=== PATIENT | female | born 1995 | race African-American/Black ===

== ENCOUNTER 2016-10-02 23:59 | Emergency (ER) | payer OTHER ==
[2016-10-03] MEDS ORDERED: hydrOXYzine HCL TAB* 50 MG PO ONE (01:49)
[2016-10-03 02:08] VITALS: BP 134/83
--- NOTE | 2016-10-03 02:34 | ED ---
Skin Complaint - HPI Summary HPI Summary: Pt here w/ multiple red pruritic spots that she noticed while driving back from a weekend in [place]. Admits she stayed in a hostile - did not note uncleanliness however reports there may have been insects in the area. Denies trouble breathing, swallowing, facial swelling or tingling. Has allergies and asthma and takes an anti-histamine as well as singulair daily. No current issues but h/o skin reactions w/ environmental contacts. No new food,, medication, toiletries, etc. No trauma to skin of affected areas and no known h/ o infections (ie., MRSA, staph, etc). Pt is here because she's concerned about what this could be and also because she can't stop itching the areas. Tried benadryl 25mg earlier today w some relief. - History of Current Complaint Chief Complaint: EDRashSkinAbscess Time Seen by Provider: 10/03/16 01:28 Stated Complaint: RASH Hx Obtained From: Patient, Family/Funeral Home General Manager - mom Pain Intensity: 2 Pain Scale Used: 0-10 Numeric - Allergy/Home Medications Allergies/Adverse Reactions: Allergies Allergy/AdvReac Type Severity Reaction Status Date / Time No Known Allergies Allergy Verified 10/03/16 00:10 PMH/Surg Hx/FS Hx/Imm Hx - Immunization History Date of Tetanus Vaccine: 2009 Date of Influenza Vaccine: None Infectious Disease History: No Infectious Disease History: Reports: Traveled Outside the [place] in Last 30 Days - Social History Alcohol Use: Occasionally Substance Use Type: Reports: Marijuana Smoking Status (MU): Light Every Day Tobacco Smoker Physical Exam Triage Information Reviewed: Yes Vital Signs On Initial Exam: Initial Vitals Temp Pulse Resp BP Pulse Ox 98.3 F 72 15 134/78 100 10/03/16 00:04 10/03/16 00:04 10/03/16 00:04 10/03/16 00:04 10/03/16 00:04 Vital Signs Reviewed: Yes Appearance: Positive: Well-Appearing, No Pain Distress, Well-Nourished Skin: Positive: Warm, Dry - dime sized areas of erythematous urticaria - appears to be insect bites; 2 side by side along Lt ventral forearm, 2 side by side over Rt lateral hip, 1 over Rt anterior tibial region and 1 over Rt calf region - no pustules, no vesicles, no bleeding nor bruising. Head/Face: Positive: Normal Head/Face Inspection Eyes: Positive: Normal, EOMI. Negative: Conjunctiva Inflammed, Discharge ENT: Positive: Hearing grossly normal, Pharynx normal Neck: Positive: Supple Respiratory/Lung Sounds: Positive: Clear to Auscultation, Breath Sounds Present. Negative: Stridor, Wheezes Cardiovascular: Positive: Normal, RRR. Negative: Leg Edema Left, Leg Edema Right Abdomen Description: Positive: Nontender Bowel Sounds: Positive: Present Musculoskeletal: Positive: Normal, Strength/ROM Intact Neurological: Positive: Normal, Sensory/Motor Intact, Alert, Oriented to Person Place, Time, CN Intact II-III Psychiatric: Positive: Normal Diagnostics - Vital Signs Vital Signs Temp Pulse Resp BP Pulse Ox 10/03/16 02:07 98.3 F 65 16 134/83 10/03/16 00:04 98.3 F 72 15 134/78 100 - Laboratory Lab Statement: Any lab studies that have been ordered have been reviewed, and results considered in the medical decision making process. Course/Dx - Diagnoses Provider Diagnoses: Bug bites Discharge - Discharge Plan Condition: Stable Disposition: HOME Prescriptions: Hydrocortisone 1% CREAM* [Hytone Cream 1%*] 1 applic TOPICAL TID PRN #1 tube PRN Reason: Itching hydrOXYzine HCL TAB* [Atarax 25 MG TAB*] 25 mg PO QID PRN #20 tab PRN Reason: Itching Patient Education Materials: Insect Bite or Sting (ED) Forms: *Work Release Referrals: Betsy Blanco MD [Primary Care Provider] - Additional Instructions: You appear to be having a local reaction to bug bites. It is important that you avoid itching in an effort to a) reduce symptoms and b) prevent risk of opening wounds and triggering an infection. You may use topical ice, hydrocortisone, oatmeal bath, sensitive skin moisturizer and take hydroxyzine by mouth for itching. Follow-up with PCP if persists beyond the week. *If you develop fever, chills, trouble breathing, limbs swelling, worsening of sores, return to ED
== END 2016-10-03 02:07 | disposition home or self-care (01) ==
LOC: ED 23:59
DX: T14.8 Other injury of unspecified body region (principal); L29.9 Pruritus, unspecified; F17.210 Nicotine dependence, cigarettes, uncomplicated; W57.XXXA Bitten or stung by nonvenomous insect and other nonvenomous arthropods, initial encounter; Y93.9 Activity, unspecified; Y92.9 Unspecified place or not applicable
CPT/HCPCS: 99282; A9270-GY

== ENCOUNTER 2018-04-29 17:31 | Emergency (ER) | payer OTHER ==
[2018-04-29] MEDS ORDERED: Ibuprofen TAB* 600 MG PO ONE (22:04)
[2018-04-29] MEDS ORDERED: Amoxicillin PO (*) 500 MG CAP PO ONE (22:04)
[2018-04-29] MEDS ORDERED: Lidocaine 2% VISCOUS* 15 ML UDC PO ONE (22:04)
--- NOTE | 2018-04-29 22:05 | ED ---
Influenza-Like Illness - HPI Summary HPI Summary: Patient complains of one episode of possible syncope today. Denies head injury. Has been complaining of lightheadedness, fatigue, nasal congestion, cough, sore throat, N/V, headache 2-3 days. Denies neck stiffness, CP, SOB, abdominal pain, change in urine, change in BM. - History of Current Complaint Chief Complaint: EDSyncope Time Seen by Provider: 04/29/18 19:57 Hx Obtained From: Patient Onset/Duration: Gradual Onset, Lasting Days Severity: Moderate Associated Signs & Symptoms: Cough, Sore Throat, Nasal Congestion, Headache, Vomiting - Allergy/Home Medications Allergies/Adverse Reactions: Allergies Allergy/AdvReac Type Severity Reaction Status Date / Time No Known Allergies Allergy Verified 10/03/16 00:10 PMH/Surg Hx/FS Hx/Imm Hx Endocrine/Hematology History: Denies: Hx Anticoagulant Therapy Cardiovascular History: Denies: Hx Cardiac Arrest Respiratory History: Reports: Hx Seasonal Allergies Denies: Hx Asthma - Immunization History Date of Tetanus Vaccine: 2009 Date of Influenza Vaccine: None Infectious Disease History: No Infectious Disease History: Denies: Traveled Outside the in Last 30 Days - Social History Alcohol Use: Occasionally Substance Use Type: Reports: Marijuana Smoking Status (MU): Former Smoker Review of Systems Constitutional: Negative Eyes: Negative Positive: Sore Throat, Nasal Discharge Cardiovascular: Negative Respiratory: Negative Gastrointestinal: Negative Genitourinary: Negative Musculoskeletal: Negative Skin: Negative Positive: Headache Psychological: Normal All Other Systems Reviewed And Are Negative: Yes Physical Exam Triage Information Reviewed: Yes Vital Signs On Initial Exam: Initial Vitals Temp Pulse Resp BP Pulse Ox 98.2 F 80 16 120/67 97 04/29/18 17:34 04/29/18 17:34 04/29/18 17:34 04/29/18 17:34 04/29/18 17:34 Vital Signs Reviewed: Yes Appearance: Positive: Well-Appearing Skin: Positive: Warm Head/Face: Positive: Normal Head/Face Inspection Eyes: Positive: Normal Neck: Positive: Supple Respiratory/Lung Sounds: Positive: Clear to Auscultation Cardiovascular: Positive: Normal Abdomen Description: Positive: Nontender Musculoskeletal: Positive: Normal Neurological: Positive: Normal Psychiatric: Positive: Normal AVPU Assessment: Alert - [place] Coma Scale Best Eye Response: 4 - Spontaneous Best Motor Response: 6 - Obeys Commands Best Verbal Response: 5 - Oriented Coma Scale Total: 15 Diagnostics - Vital Signs Vital Signs Temp Pulse Resp BP Pulse Ox 04/29/18 19:30 99.1 F 71 16 133/78 100 04/29/18 17:34 98.2 F 80 16 120/67 97 - Laboratory Lab Results: Lab Results 04/29/18 04/29/18 Range/Units 21:27 21:35 Influenza A (Rapid) Negative (Negative) Influenza B (Rapid) Negative (Negative) Group A Strep Rapid Positive A (Negative) Lab Statement: Any lab studies that have been ordered have been reviewed, and results considered in the medical decision making process. Flu Symptom Course/Dx - Course Course Of Treatment: Patient complains of one episode of possible syncope today. Denies head injury. Has been complaining of lightheadedness, fatigue, nasal congestion, cough, sore throat, N/V, headache 2-3 days. Denies neck stiffness, CP, SOB, abdominal pain, change in urine, change in BM. Strep positive. Rx for amoxicillin, lidocaine. - Diagnoses Provider Diagnoses: Strep throat Discharge - Sign-Out/Discharge Documenting (check all that apply): Patient Departure - Discharge Plan Condition: Stable Disposition: HOME Prescriptions: Amoxicillin 500 mg PO BID 10 Days #20 capsule Lidocaine 2% VISCOUS* [Xylocaine 2% Viscous*] 15 ml SWISH SPIT Q6H PRN #1 btl PRN Reason: Pain Patient Education Materials: Strep Throat (ED) Referrals: Betsy Blanco MD [Primary Care Provider] - Additional Instructions: Follow-up with primary care. Return to the ED for any new or worsening symptoms - Billing Disposition and Condition Condition: STABLE Disposition: Home
[2018-04-29 22:49] VITALS: BP 132/75
== END 2018-04-29 22:49 | disposition home or self-care (01) ==
LOC: ED 17:31
DX: J02.0 Streptococcal pharyngitis (principal); Z87.891 Personal history of nicotine dependence
CPT/HCPCS: 87651; 99282; A9270-GY